=== PATIENT | female | born 2000 | race Two or more races ===

== ENCOUNTER 2021-05-08 13:40 | Emergency (ER) | payer OTHER | END 2021-05-08 16:05 | disposition home or self-care (01) | LOC: ER 13:40 | DX: O26.892 Other specified pregnancy related conditions, second trimester (principal); S30.0XXA Contusion of lower back and pelvis, initial encounter; Z34.02 Encounter for supervision of normal first pregnancy, second trimester; V49.9XXA Car occupant (driver) (passenger) injured in unspecified traffic accident, initial encounter; Y93.89 Activity, other specified; Y92.488 Other paved roadways as the place of occurrence of the external cause; Y99.8 Other external cause status ==